=== PATIENT | male | born 1960 | race Caucasian/White ===

== ENCOUNTER 2019-11-19 06:57 | Day surgery (SDC) | payer OTHER ==
[2019-11-19] MEDS ORDERED: Ringers Lactate 1,000 ML IV ONE (07:29)
[2019-11-19] MEDS ORDERED: SUCCINYLCHOLINE 20 MG/ML (10 ML) IV ONE (07:30)
[2019-11-19] MEDS: LIDOCAINE 4% TOP SOLUTION ONE ×2 (07:35→08:04)
[2019-11-19] MEDS ORDERED: LIDOCAINE 1% MPF 30 ML VIAL ONE ×2 (07:47→07:52)
[2019-11-19] MEDS ORDERED: Phenylephrine HCl 10 MG/ML 1 ML VIAL ONE (07:47)
[2019-11-19] MEDS ORDERED: GLYCOPYRROLATE 0.2 MG/ML SYR ONE (07:47)
[2019-11-19] MEDS ORDERED: LIDOCAINE VISCOUS 2% SOLN 15 ML UDC ONE (07:52)
[2019-11-19] MEDS ORDERED: propofoL 200 MG/20 ML VIAL IV ONE ×2 (08:17)
[2019-11-19] MEDS ORDERED: FENTANYL CITR 100 MCG/2 ML ONE (08:18)
[2019-11-19] MEDS ORDERED: LIDOCAINE 1% MPF 5 ML VIAL ONE (08:21)
--- NOTE | 2019-11-19 08:40 | P.OP ---
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 Patient had 90% occlusion of his right upper lobe superior segmental bronchus extending into the anterior segment the triple biopsies were performed as above patient manisha rated the procedure very well specimens were sent off for analysis most likely squamous cell cancer
[2019-11-19] MEDS ORDERED: ALBUTEROL 2.5 MG/3 ML NEB SOL ONE (08:59)
[2019-11-19 09:27] VITALS: TEMP 97.6
[2019-11-19 09:29] VITALS: O2SAT 100
[2019-11-19 09:54] VITALS: BP 108/66
--- NOTE | 2019-11-19 10:00 | RAD REPORT ---
EXAM DESCRIPTION: RAD - Chest Single View - 11/19/2019 9:48 am CLINICAL HISTORY: S/P BRONCHOSCOPY;R/O PNEUMOTHORAX Chest pain. COMPARISON: Chest Pa And Lat (2 Views) dated 10/20/2019; Chest Pa And Lat (2 Views) dated 02/07/2018; CHEST SINGLE VIEW dated 07/20/2011 FINDINGS: Portable technique limits examination quality. The lungs are grossly clear. The heart is normal in size. No postprocedure pneumothorax. IMPRESSION: No postprocedure pneumothorax.
== END 2019-11-19 10:20 | disposition home or self-care (01) ==
LOC: OR 06:57
PROVIDERS: ATTEND Internal Medicine Sleep Medicine
DX: C34.11 Malignant neoplasm of upper lobe, right bronchus or lung (principal); J98.11 Atelectasis; J44.9 Chronic obstructive pulmonary disease, unspecified; A31.9 Mycobacterial infection, unspecified; F51.01 Primary insomnia; F17.200 Nicotine dependence, unspecified, uncomplicated; Z79.51 Long term (current) use of inhaled steroids; Z79.52 Long term (current) use of systemic steroids; Z79.891 Long term (current) use of opiate analgesic; Z79.899 Other long term (current) drug therapy
CPT/HCPCS: 31625; 31624; 31623; 87070; 88108 ×2; 88305 ×2; 87015; 87206; 87116; 87102; 71045; J2704 ×2; J2370; J3010; J7120; J0330

== ENCOUNTER 2020-07-21 08:42 | Emergency (ER) | payer OTHER ==
[2020-07-21 09:16] LABS: Basophils % 1.4 % (0-1.3); Hematocrit 41.9 % (39.6-49.0); Lymphocytes % 17.9 % (15.3-44.8); MPV 7.2 fL (7.6-11.3); RBC Red Blood Cell Count 4.24 M/uL (4.33-5.43)
[2020-07-21 09:19] LABS: Protime INR 0.96
[2020-07-21 09:39] LABS: ALT/SGPT 24 U/L (12-78); AST/SGOT 20 U/L (15-37); Albumin 3.7 g/dL (3.4-5.0); Alkaline Phosphatase 76 U/L (45-117); BUN Blood Urea Nitrogen 14 mg/dL (7-18); Bicarbonate 30 mmol/L (21-32); Bilirubin Direct < 0.1 mg/dL (0-0.2); Bilirubin Total 0.3 mg/dL (0.2-1.0); Glucose Level 92 mg/dL (74-106); Magnesium 2.1 mg/dL (1.8-2.4); NT PRO-BNP 100 pg/mL (<125); Potassium 4.1 mmol/L (3.5-5.1); Protein, Total 7.1 g/dL (6.4-8.2); Sodium Level 141 mmol/L (136-145); Troponin (Emerg Dept Use Only) < 0.02 ng/mL (0.0-0.045)
--- NOTE | 2020-07-21 10:03 | RAD REPORT ---
EXAM DESCRIPTION: RAD - Chest Single View - 07/21/2020 9:31 am CLINICAL HISTORY: CHEST PAIN, lung cancer history COMPARISON: CT chest June 28, portable chest October 2019 . TECHNIQUE: AP portable chest image was obtained 07/21/2020 9:31 am . FINDINGS: No new mass or infiltrate of the lung parenchyma. Right perihilar stranding and slight jennifer vation of the right hilum noted similar to the CT study. Trachea is in the midline. No failure or vol ume overload. IMPRESSION: No acute cardiopulmonary process. No significant change from the June 28 CT study.
[2020-07-21] MEDS ORDERED: METHYLPREDNISOLONE 125 MG INJ ONE (10:33)
[2020-07-21] MEDS ORDERED: KETOROLAC 30 MG/ML INJ ONE (10:33)
--- NOTE | 2020-07-21 11:32 | EDPHYS ---
Physician Documentation [facility] Name: Suraj Bowens Age: 59 yrs Sex: Male : 1960 Arrival Date: 07/21/2020 Time: 08:42 Bed 5 Private MD: Erick Elmore R ED Physician Humberto Rivera HPI: 07/22 11:05 This 59 yrs old Male presents to ER via Ambulatory with complaints of Chest kdr Pain. 11:05 The patient or guardian reports chest pain that is located primarily in the anterior kdr chest wall, right. Onset: suddenly, 2 day(s) ago. The pain does not radiate. Associated signs and symptoms: Pertinent positives: shortness of breath, Pertinent negatives: diaphoresis, lightheadedness, nausea, vomiting. The chest pain is described as sharp, stabbing. Duration: The patient or guardian reports multiple episodes, that are intermittent, that wax and wane, Related to movement and coughing. Modifying factors: The symptoms are alleviated by remaining still, the symptoms are aggravated by activity, breathing, cough, deep breath, movement, twisting torso. Severity of pain: At its worst the pain was severe incapacitating in the emergency department the pain has improved mildly. The patient has not experienced similar symptoms in the past. The patient has not recently seen a physician. Historical: - Allergies: 07/21 08:57 Keflex; aa5 - PMHx: 08:57 Lung CA; aa5 - PSHx: 08:57 Back Sx; aa5 - Immunization history:: Adult Immunizations unknown. - Social history:: Smoking status: Patient/guardian denies using tobacco. ROS: 07/22 11:05 Constitutional: Negative for fever, chills, and weight loss, Eyes: Negative for injury, kdr pain, redness, and discharge, ENT: Negative for injury, pain, and discharge, Neck: Negative for injury, pain, and swelling, Respiratory: Negative for shortness of breath, cough, wheezing, and pleuritic chest pain, Abdomen/GI: Negative for abdominal pain, nausea, vomiting, diarrhea, and constipation, Back: Negative for injury and pain, : Negative for injury, bleeding, discharge, and swelling, MS/Extremity: Negative for injury and deformity, Skin: Negative for injury, rash, and discoloration, Neuro: Negative for headache, weakness, numbness, tingling, and seizure activity. Psych: Negative for depression, anxiety, suicide ideation, homicidal ideation, and hallucinations, Allergy/Immunology: Negative for hives, rash, and allergies, Endocrine: Negative for neck swelling, polydipsia, polyuria, polyphagia, and marked weight changes, Hematologic/Lymphatic: Negative for swollen nodes, abnormal bleeding, and unusual bruising. Cardiovascular: Positive for chest pain, with cough, with movement, of the anterior aspect of right upper chest, right lateral anterior chest, right lateral posterior chest and right breast. Exam: 07/21 11:44 ECG was reviewed by the Attending Physician. kdr 07/22 11:05 Constitutional: This is a well developed, well nourished patient who is awake, alert, kdr and in mild distress. Head/Face: Normocephalic, atraumatic. Eyes: Pupils equal round and reactive to light, extra-ocular motions intact. Lids and lashes normal. Conjunctiva and sclera are non-icteric and not injected. Cornea within normal limits. Periorbital areas with no swelling, redness, or edema. Neck: Trachea midline, no thyromegaly or masses palpated, and no cervical lymphadenopathy. Supple, full range of motion without nuchal rigidity, or vertebral point tenderness. No Meningismus. Chest/axilla: Normal chest wall appearance and motion. Nontender with no deformity. No lesions are appreciated. Cardiovascular: Regular rate and rhythm with a normal S1 and S2. No gallops, murmurs, or rubs. Normal PMI, no JVD. No pulse deficits. Respiratory: Lungs have equal breath sounds bilaterally, clear to auscultation and percussion. No rales, rhonchi or wheezes noted. No increased work of breathing, no retractions or nasal flaring. Abdomen/GI: Soft, non-tender, with normal bowel sounds. No distension or tympany. No guarding or rebound. No evidence of tenderness throughout. Back: No spinal tenderness. No costovertebral tenderness. Full range of motion. Skin: Warm, dry with normal turgor. Normal color with no rashes, no lesions, and no evidence of cellulitis. MS/ Extremity: Pulses equal, no cyanosis. Neurovascular intact. Full, normal range of motion. Neuro: Awake and alert, GCS 15, oriented to person, place, time, and situation. Cranial nerves II-XII grossly intact. Motor strength 5/5 in all extremities. Sensory grossly intact. Cerebellar exam normal. Normal gait. Psych: Awake, alert, with orientation to person, place and time. Behavior, mood, and affect are within normal limits. Vital Signs: 07/21 08:45 Weight 83.91 kg (R); Height 5 ft. 11 in. (180.34 cm) (R); Pain 9/10; aa5 08:45 BP 135 / 79; Pulse 57; Resp 22; Temp 98.6; Pulse Ox 97% ; Pain 10/10; jl7 09:45 BP 116 / 65; Pulse 46 MON; Resp 20; Pulse Ox 100% ; sv 10:30 BP 106 / 68; Pulse 44; Resp 14; Pulse Ox 96% ; sv 11:00 BP 100 / 63; Pulse 45; Resp 17; Pulse Ox 96% ; Pain 1/10; jl7 08:45 Body Mass Index 25.80 (83.91 kg, 180.34 cm) aa5 09:45 Sinus bradycardia sv MDM: 11:32 Patient medically screened. [facility] 07/22 11:05 Data reviewed: vital signs, nurses notes, lab test result(s), EKG, radiologic studies. kdr Counseling: I had a detailed discussion with the patient and/or guardian regarding: the historical points, exam findings, and any diagnostic results supporting the discharge/admit diagnosis, lab results, radiology results, the need for outpatient follow up. Medical screen evaluation completed. EMTALA emergency medical condition absent. ED course: The patient significantly improved with the interventions given. 07/21 08:56 Order name: Basic Metabolic Panel; Complete Time: 11: [facility] 07/21 08:56 Order name: CBC with Diff; Complete Time: 11: [facility] 07/21 08:56 Order name: LFT's; Complete Time: 11: [facility] 07/21 08:56 Order name: Magnesium; Complete Time: 11: [facility] 07/21 08:56 Order name: NT PRO-BNP; Complete Time: 11: [facility] 07/21 08:56 Order name: PT-INR; Complete Time: 11: [facility] 07/21 08:56 Order name: Troponin (emerg Dept Use Only); Complete Time: 11: [facility] 07/21 08:56 Order name: XRAY Chest (1 view); Complete Time: 11:29 [facility] 07/21 08:56 Order name: EKG; Complete Time: 08: [facility] 07/21 08:56 Order name: Cardiac monitoring; Complete Time: 08:56 [facility] 07/21 08:56 Order name: EKG - Nurse/Tech; Complete Time: 08:56 [facility] 07/21 08:56 Order name: IV Saline Lock; Complete Time: 09: [facility] 07/21 08:56 Order name: Labs collected and sent; Complete Time: 09: [facility] 07/21 08:56 Order name: O2 Per Protocol; Complete Time: 08: [facility] 07/21 08:56 Order name: O2 Sat Monitoring; Complete Time: 08: [facility] EC/25 11:44 Rate is 54 beats/min. Rhythm is regular, Sinus bradycardia with No ectopy. QRS [place] is kdr Normal. [place] interval is normal. QRS interval is normal. QT interval is normal. Clinical impression: NSR w/ Non-specific ST/T Changes. Administered Medications: 10:17 Drug: TORadol - Ketorolac 15 mg Route: IVP; Site: left antecubital; jl7 10:45 Follow up: Response: No adverse reaction; Pain is decreased jl7 10:17 Drug: SOLU-Medrol 125 mg Route: IVP; Site: left antecubital; jl7 11:46 Follow up: Response: No adverse reaction jl7 11:46 Drug: [place] 10 mg-325 mg 1 tabs Route: PO; jl7 11:46 Follow up: Response: Medication administered at discharge. jl7 Disposition: 07/21/20 11:32 Discharged to Home. Impression: Pleurisy. - Condition is Stable. - Discharge Instructions: Bradycardia, Adult, Pleurisy, [id number]. - Prescriptions for Ibuprofen 800 mg Oral Tablet - take 1 tablet by ORAL route every 8 hours As needed take with food; 30 tablet. Tramadol 50 mg Oral Tablet - take 1 tablet by ORAL route every 8 hours as needed; 12 tablet. Medrol (Homero) 4 mg Oral Tablets, Dose Pack - take 1 tablet by ORAL route as directed - follow package instructions; 1 packet. - Medication Reconciliation Form, Thank You Letter, Prescription Opioid Use form. - Follow up: Erick Elmore MD; When: 2 - 3 days; Reason: If symptoms return, Further diagnostic work-up, Recheck today's complaints, Continuance of care, Re-evaluation by your physician. - Problem is new. - Symptoms have improved. - Notes: Hold your Atenolol for 24 hours and call your oyster bed worker for a possible adjustment to your medications Signatures: Dispatcher [employer] EDMS Humberto Rivera MD MD kdr Dulce Maria Parker RN RN aa5 Allison Bran RN RN jl7 Corrections: (The following items were deleted from the chart) 11:49 11:32 07/21/2020 11:32 Discharged to Home. Impression: Pleurisy. Condition is Stable. jl7 Forms are Medication Reconciliation Form, Thank You Letter, Antibiotic Education, Prescription Opioid Use. Follow up: Erick Elmore; When: 2 - 3 days; Reason: If symptoms return, Further diagnostic work-up, Recheck today's complaints, Continuance of care, Re-evaluation by your physician. Problem is new. Symptoms have improved. kdr
--- NOTE | 2020-07-21 11:32 | ER ---
Nurse's Notes [facility] Name: Suraj Bowens Age: 59 yrs Sex: Male : 1960 Arrival Date: 07/21/2020 Time: 08:42 Bed 5 Private MD: Erick Elmore R Diagnosis: Pleurisy Presentation: 07/21 08:45 Chief complaint: Patient states: chest pain that began 2 days ago and got worse today. aa5 Pt reports being sent here by from the cancer center. Pt also reports increased SOB. 08:45 Onset of symptoms was June 2020. aa5 08:45 Acuity: SERGIO 3 aa5 08:45 Method Of Arrival: Ambulatory aa5 08:45 Coronavirus screen: Client denies travel out of the [place] in the last 14 days. At this jl7 time, the client does not indicate any symptoms associated with coronavirus-19. Ebola Screen: No symptoms or risks identified at this time. Initial Sepsis Screen: Does the patient meet any 2 criteria? No. Patient's initial sepsis screen is negative. Does the patient have a suspected source of infection? No. Patient's initial sepsis screen is negative. Risk Assessment: Do you want to hurt yourself or someone else? Patient reports no desire to harm self or others. Care prior to arrival: None. Triage Assessment: 08:45 General: Appears in no apparent distress. uncomfortable, Behavior is calm, cooperative, jl7 appropriate for age. Pain: Complains of pain in right rib cage/chest wall Pain does not radiate. Pain currently is 10 out of 10 on a pain scale. Quality of pain is described as sharp, stabbing, Pain began 2-3 days ago. Is continuous. Neuro: Level of Consciousness is awake, alert, obeys commands, Oriented to person, place, time, situation. Cardiovascular: Patient's skin is warm and dry. Rhythm is sinus bradycardia. Respiratory: Airway is patent Respiratory effort is even, labored, Respiratory pattern is symmetrical, tachypnea. Derm: Skin is pink, warm \T\ dry. Historical: - Allergies: 08:57 Keflex; aa5 - PMHx: 08:57 Lung CA; aa5 - PSHx: 08:57 Back Sx; aa5 - Immunization history:: Adult Immunizations unknown. - Social history:: Smoking status: Patient/guardian denies using tobacco. Screenin:23 Abuse screen: Denies threats or abuse. Denies injuries from another. Nutritional jl7 screening: No deficits noted. Tuberculosis screening: No symptoms or risk factors identified. Fall Risk IV access (20 points). Total [place] Fall Scale indicates No Risk (0-24 pts). Assessment: 09:00 General: see triage assessment. jl7 10:00 Reassessment: Patient appears in no apparent distress at this time. Patient and/or jl7 family updated on plan of care and expected duration. Pain level reassessed. Patient is alert, oriented x 3, equal unlabored respirations, skin warm/dry/pink. Patient states feeling better. Patient states symptoms have improved. Vital Signs: 08:45 Weight 83.91 kg (R); Height 5 ft. 11 in. (180.34 cm) (R); Pain 9/10; aa5 08:45 BP 135 / 79; Pulse 57; Resp 22; Temp 98.6; Pulse Ox 97% ; Pain 10/10; jl7 09:45 BP 116 / 65; Pulse 46 MON; Resp 20; Pulse Ox 100% ; sv 10:30 BP 106 / 68; Pulse 44; Resp 14; Pulse Ox 96% ; sv 11:00 BP 100 / 63; Pulse 45; Resp 17; Pulse Ox 96% ; Pain 1/10; jl7 08:45 Body Mass Index 25.80 (83.91 kg, 180.34 cm) aa5 09:45 Sinus bradycardia sv ED Course: 08:42 Patient arrived in ED. am2 08:43 Erick Elmore MD is Private Physician. am2 08:45 Arm band placed on Patient placed in an exam room, on a stretcher. aa5 08:45 Patient has correct armband on for positive identification. Placed in gown. Bed in low jl7 position. Call light in reach. Side rails up X 1. toxicologist on. Pulse ox on. NIBP on. 08:55 Humberto Rivera MD is Attending Physician. kdr 08:55 Initial lab(s) drawn, by me, sent to lab. EKG done, by ED staff, reviewed by Humberto Rivera MD. Inserted saline lock: 20 gauge in left antecubital area, using aseptic technique. Blood collected. Patient maintains SpO2 saturation greater than 95% on room air. 08:56 Allison Bran, RN is Primary Nurse. jl7 08:57 Triage completed. aa5 09:31 XRAY Chest (1 view) In Process Unspecified. EDMS 11:30 Erick Elmore MD is Referral Physician. kdr 11:48 No provider procedures requiring assistance completed. IV discontinued, intact, jl7 bleeding controlled, No redness/swelling at site. Pressure dressing applied. Administered Medications: 10:17 Drug: TORadol - Ketorolac 15 mg Route: IVP; Site: left antecubital; jl7 10:45 Follow up: Response: No adverse reaction; Pain is decreased jl7 10:17 Drug: SOLU-Medrol 125 mg Route: IVP; Site: left antecubital; jl7 11:46 Follow up: Response: No adverse reaction jl7 11:46 Drug: [place] 10 mg-325 mg 1 tabs Route: PO; jl7 11:46 Follow up: Response: Medication administered at discharge. jl7 Outcome: 11:32 Discharge ordered by MD. kdr 11:48 Discharged to home ambulatory, with family. jl7 11:48 Condition: stable 11:48 Discharge instructions given to patient, Instructed on discharge instructions, follow up and referral plans. medication usage, Demonstrated understanding of instructions, follow-up care, medications, Prescriptions given X 3. 11:49 Patient left the ED. jl7 Signatures: Dispatcher [employer] EDUT Karolina Casillas RN RN sv Rittger, Kevin, MD MD kdr Calderon, Audri RN JOANNE aa5 Allison Bran RN RN jl7 Anaid Mayberry am2
[2020-07-21] MEDS ORDERED: HYDROCODONE/APAP 10/325 TAB ONE (11:56)
[2020-07-21 12:15] VITALS: TEMP 98.6
[2020-07-21 12:17] VITALS: O2SAT 96
[2020-07-21 12:18] VITALS: BP 100/63
--- NOTE | 2020-07-22 14:13 | EKG ---
Test Date: 2020-07-21 Test Time: 08:52:05 Pig Iron Loader: JAIR MEASUREMENT RESULTS: Intervals: Rate: 54 FL: 140 QRSD: 78 QT: 402 QTc: 381 [place]: P: 51 FL: 140 QRS: 14 T: 73 INTERPRETIVE STATEMENTS: Sinus bradycardia Otherwise normal ECG Compared to ECG 02/16/2014 15:34:28 No significant changes Electronically Signed On 07-22-20 14:09:23 COMMUNICATIONS SYSTEMS ENGINEER by Satish Tucker
== END 2020-07-21 11:49 | disposition home or self-care (01) ==
LOC: ER 08:42
DX: R09.1 Pleurisy (principal); Z88.1 Allergy status to other antibiotic agents; Z85.118 Personal history of other malignant neoplasm of bronchus and lung
CPT/HCPCS: 93005; 85025; 80048; 36415; 83735; 85610; 80076; 84484; 83880; 71045; 96375; 96374; 99285; J2930

== ENCOUNTER 2020-11-27 09:08 | Observation (INO) | payer OTHER ==
--- NOTE | 2020-11-27 09:46 | RAD REPORT ---
EXAM DESCRIPTION: RAD - Chest Single View - 11/27/2020 9:38 am CLINICAL HISTORY: Cough;Dyspnea COMPARISON: Portable July 21 TECHNIQUE: AP portable chest image was obtained 11/27/2020 9:38 am . FINDINGS: Right lung field is clear and similar to prior imaging. Stranding is seen at the left base partially obscuring the left hemidiaphragm. There is left costophrenic angle blunting. Heart and vasculature are normal. No pneumothorax. No acute bony abnormality seen. No acute aortic f indings suspected. IMPRESSION: Atelectasis versus infiltrate left base.
[2020-11-27 09:55] LABS: Protime INR 1.13
[2020-11-27 09:56] LABS: Absolute Lymphocytes (CBC) 0.4 K/uL (0.7-4.9); Basophils % 0.3 % (0-1.3); Hematocrit 37.9 % (39.6-49.0); Lymphocytes % 5.5 % (15.3-44.8); MPV 7.5 fL (7.6-11.3); RBC Red Blood Cell Count 4.08 M/uL (4.33-5.43)
[2020-11-27 10:15] LABS: ALT/SGPT 14 U/L (12-78); AST/SGOT 10 U/L (15-37); Albumin 3.2 g/dL (3.4-5.0); Alkaline Phosphatase 68 U/L (45-117); BUN Blood Urea Nitrogen 16 mg/dL (7-18); Bicarbonate 27 mmol/L (21-32); Bilirubin Direct 0.2 mg/dL (0-0.2); Bilirubin Total 0.5 mg/dL (0.2-1.0); Glucose Level 110 mg/dL (74-106); NT PRO-BNP 320 pg/mL (<125); Potassium 3.7 mmol/L (3.5-5.1); Protein, Total 6.7 g/dL (6.4-8.2); Sodium Level 137 mmol/L (136-145); Troponin (Emerg Dept Use Only) < 0.02 ng/mL (0.0-0.045)
--- NOTE | 2020-11-27 10:24 | RAD REPORT ---
EXAM DESCRIPTION: CT - Chest For Pe Angio - 11/27/2020 10:05 am CLINICAL HISTORY: Congestion;COPD;Dyspnea COMPARISON: Thorax W/ Con dated 10/05/2020 TECHNIQUE: Dynamically enhanced 3 mm thick images of the chest were obtained during administration o f approximately 150mL Isovue 370 IV contrast. Coronal and oblique MIP reconstruction images were gene rated and reviewed. Exam utilizes a protocol to evaluate the pulmonary arterial tree. All CT scans are performed using dose optimization technique as appropriate and may include automated exposure control or mA/KV adjustment according to patient size. FINDINGS: No pulmonary emboli are identified. The aorta as imaged shows no acute or suspicious finding. No pericardial thickening or effusion. Right perihilar residual soft tissue is present from previously diagnosed and treated lung cancer. Th is soft tissue quantity has not change from October 05. Bilateral posterior lung base consolidation present with air bronchograms. This is more pronounced on the right. No cavitation or mass. No endobronchial lesions seen. Trace amount of bilateral pleural f luid. No pleural based mass or pleural thickening. No mediastinal or hilar suspicious masses. No chest wall masses or abnormal axillary lymphadenopathy. IMPRESSION: Moderate-sized bilateral posterior lung base consolidated pneumonias. No pulmonary emboli.
[2020-11-27] MEDS ORDERED: NA CHLORIDE 0.9% 1,000 ML ONE ×2 (10:26→11:35)
[2020-11-27] MEDS ORDERED: Levofloxacin500mg IV 500 MG/100 ML BAG IV ONE (10:26)
[2020-11-27] MEDS ORDERED: FAMOTIDINE 20 MG/2 ML VIAL IV ONE (10:26)
[2020-11-27] MEDS ORDERED: METHYLPREDNISOLONE 125 MG INJ ONE (10:26)
[2020-11-27] MEDS ORDERED: IPRATROPIUM BROM 0.5MG/2.5ML ONE (10:26)
[2020-11-27] MEDS ORDERED: LEVALBUTEROL 1.25 MG/3 ML NEB ONE (10:26)
[2020-11-27] MEDS ORDERED: ACETAMINOPHEN 500 MG TAB ONE (10:26)
--- NOTE | 2020-11-27 10:28 | EDPHYS ---
Physician Documentation [facility] Name: Suraj Bowens Age: 60 yrs Sex: Male : 1960 Arrival Date: 11/27/2020 Time: 09:12 Bed 6 Private MD: ED Physician Kwame Robbins HPI: 11/27 10:07 This 60 yrs old Male presents to ER via Ambulatory with complaints of Fever, francesca Breathing Difficulty. 10:07 The patient reports fever, not measured (subjective), that was measured at 103 degrees francesca Fahrenheit. Onset: The symptoms/episode began/occurred 3 day(s) ago. Modifying factors: there are no obvious modifying factors. Associated signs and symptoms: Pertinent positives: chills, cough, nausea, night sweats, runny nose, sinus congestion, shortness of breath. Severity of symptoms: At their worst the symptoms were moderate in the emergency department the symptoms are unchanged. The patient has experienced similar episodes in the past, a few times. Historical: - Allergies: 09:22 Cephalexin Monohydrate; ll1 09:22 Doxycycline; ll1 - PMHx: 09:22 Lung CA; "hole in heart never closed up at "; ll1 - PSHx: 09:22 Back SX x 4 with hardware placement; ll1 - Immunization history:: Client reports receiving the 2nd dose of the Covid vaccine, Flu vaccine is up to date. - Social history:: Smoking status: Patient/guardian denies using tobacco, the patient reports quitting approximately 1 years ago. ROS: 10:08 Eyes: Negative for injury, pain, redness, and discharge, ENT: Negative for injury, francesca pain, and discharge, Neck: Negative for injury, pain, and swelling, Abdomen/GI: Negative for abdominal pain, nausea, vomiting, diarrhea, and constipation, Back: Negative for injury and pain, : Negative for injury, bleeding, discharge, and swelling, MS/Extremity: Negative for injury and deformity, Skin: Negative for injury, rash, and discoloration, Neuro: Negative for headache, weakness, numbness, tingling, and seizure, Psych: Negative for depression, anxiety, suicide ideation, homicidal ideation, and hallucinations, Allergy/Immunology: Negative for hives, rash, and allergies, Endocrine: Negative for neck swelling, polydipsia, polyuria, polyphagia, and marked weight changes, Hematologic/Lymphatic: Negative for swollen nodes, abnormal bleeding, and unusual bruising. 10:08 Constitutional: Positive for body aches, chills, fatigue, fever, malaise. 10:08 Cardiovascular: Positive for palpitations. 10:08 Respiratory: Positive for cough, "sounds productive", shortness of breath, wheezing, expiratory. 10:08 MS/extremity: Negative for swelling, tenderness. Exam: 10:08 Head/Face: Normocephalic, atraumatic. Eyes: Pupils equal round and reactive to light, francesca extra-ocular motions intact. Lids and lashes normal. Conjunctiva and sclera are non-icteric and not injected. Cornea within normal limits. Periorbital areas with no swelling, redness, or edema. ENT: Nares patent. No nasal discharge, no septal abnormalities noted. Tympanic membranes are normal and external auditory canals are clear. Oropharynx with no redness, swelling, or masses, exudates, or evidence of obstruction, uvula midline. Mucous membranes moist. Neck: Trachea midline, no thyromegaly or masses palpated, and no cervical lymphadenopathy. Supple, full range of motion without nuchal rigidity, or vertebral point tenderness. No Meningismus. Chest/axilla: Normal chest wall appearance and motion. Nontender with no deformity. No lesions are appreciated. Abdomen/GI: Soft, non-tender, with normal bowel sounds. No distension or tympany. No guarding or rebound. No evidence of tenderness throughout. Back: No spinal tenderness. No costovertebral tenderness. Full range of motion. Male : Normal genitalia with no discharge or lesions. Skin: Warm, dry with normal turgor. Normal color with no rashes, no lesions, and no evidence of cellulitis. MS/ Extremity: Pulses equal, no cyanosis. Neurovascular intact. Full, normal range of motion. Neuro: Awake and alert, GCS 15, oriented to person, place, time, and situation. Cranial nerves II-XII grossly intact. Motor strength 5/5 in all extremities. Sensory grossly intact. Cerebellar exam normal. Normal gait. Psych: Awake, alert, with orientation to person, place and time. Behavior, mood, and affect are within normal limits. 10:08 Constitutional: The patient appears febrile. 10:08 Cardiovascular: Rate: tachycardic, Rhythm: regular, Pulses: Pulses are 4+ in bilateral radial, brachial, femoral, popliteal, posterior tibial and and dorsalis pedis arteries.. Heart sounds: normal, Edema: is not appreciated, JVD: is not appreciated. 10:08 ECG was reviewed by the Attending Physician. Vital Signs: 09:23 Weight 86.18 kg; Height 5 ft. 11 in. (180.34 cm); Pain 0/10; ll1 10:14 BP 98 / 59; Pulse 75; Resp 18; Temp 99.3; Pulse Ox 96% on R/A; ll1 11:17 BP 104 / 62; Resp 13; Pulse Ox 98% on R/A; tr6 15:00 BP 101 / 59; Pulse 86; Pulse Ox 100% on R/A; tr6 09:23 Body Mass Index 26.50 (86.18 kg, 180.34 cm) ll1 MDM: 09:14 Patient medically screened. [facility] 10:22 Antibiotic administration: Levaquin given. Differential diagnosis: Anemia Anxiety franecsca Reaction asthma, CHF exacerbation, Chronic Obstructive Pulmonary Disease viral Infection, bacterial infection, URI, bronchitis, pneumonia UTI, pneumonia, pulmonary edema, Pulmonary Embolism reactive airway disease, Sepsis Unstable Angina. The patient's Wells Deep Vein Thrombosis Score was calculated as follows: Malignancy Total Score: 0-2 Pts- Low Risk. The patient's pulmonary embolism risk score was calculated as follows: malignancy Total Score: 0-2 points. This patient was found to be at low risk for a pulmonary embolism by using the Well's assessment criteria. Immunization status: Influenza vaccine: Data reviewed: vital signs, nurses notes, lab test result(s), EKG, radiologic studies, CT scan, plain films. Data interpreted: conveyor monitor: rate is 75 beats/min, rhythm is regular, Pulse oximetry: on room air is 96 %. Test interpretation: by ED physician or midlevel provider: ECG, plain radiologic studies. Counseling: I had a detailed discussion with the patient and/or guardian regarding: the historical points, exam findings, and any diagnostic results supporting the discharge/admit diagnosis, lab results, radiology results, the need for further work-up and treatment in the hospital. 11/27 09:16 Order name: Basic Metabolic Panel [facility] 11/27 09:16 Order name: CBC with Diff [facility] 11/27 09:16 Order name: LFT's; Complete Time: 10:20 [facility] 11/27 09:16 Order name: Magnesium; Complete Time: 10:20 [facility] 11/27 09:16 Order name: NT PRO-BNP; Complete Time: 10:20 [facility] 11/27 09:16 Order name: PT-INR; Complete Time: 13:08 [facility] 11/27 09:16 Order name: Troponin (emerg Dept Use Only); Complete Time: 10:20 [facility] 11/27 09:16 Order name: Blood Culture Adult (2) 11/27 09:16 Order name: Flu; Complete Time: 13:08 [facility] 11/27 09:16 Order name: Procalcitonin; Complete Time: 13:08 [facility] 11/27 09:16 Order name: Lactate; Complete Time: 10:20 [facility] 11/27 09:16 Order name: Basic Metabolic Panel; Complete Time: 10:20 [facility] 11/27 09:16 Order name: CBC with Automated Diff; Complete Time: 13:08 [facility] 11/27 09:16 Order name: XRAY Chest (1 view); Complete Time: 10:04 [facility] 11/27 09:38 Order name: CT Chest For PE Angio; Complete Time: 13:08 [facility] 11/27 11:01 Order name: SARS-COV-2 RT PCR; Complete Time: 13:08 [facility] 11/27 12:31 Order name: CBC Smear Scan; Complete Time: 13:08 [facility] 11/27 09:16 Order name: EKG; Complete Time: 09:17 [facility] 11/27 09:16 Order name: Cardiac monitoring; Complete Time: 10:02 [facility] 11/27 09:16 Order name: EKG - Nurse/Tech; Complete Time: 10:02 [facility] 11/27 09:16 Order name: IV Saline Lock; Complete Time: 10:02 [facility] 11/27 09:16 Order name: Labs collected and sent; Complete Time: 09:18 [facility] 11/27 09:16 Order name: O2 Per Protocol; Complete Time: 09:18 [facility] 11/27 09:16 Order name: O2 Sat Monitoring; Complete Time: 09:18 [facility] EC:08 Rate is 71 beats/min. Rhythm is regular. QRS [place] is Normal. AR interval is normal. QRS francesca interval is normal. QT interval is normal. No Q waves. T waves are Normal. No ST changes noted. Clinical impression: NSR w/ Non-specific ST/T Changes and No evidence of ischemia. Interpreted by me. Reviewed by me. Administered Medications: 10: Drug: NS 0.9% 500 ml Route: IV; Rate: bolus; Site: right antecubital; tr6 10:22 Drug: levofloxacin 500 mg Volume: 100 ml; Route: IVPB; Infused Over: 60 mins; Site: tr6 right antecubital; 10:22 Drug: Tylenol 1000 mg Route: PO; tr6 10:22 Drug: Pepcid (famotidine) 20 mg Route: IVP; Site: right antecubital; tr6 10:23 Drug: NS 0.9% 1000 ml Route: IV; Rate: 125 ml/hr; Site: right antecubital; tr6 10:23 Drug: SOLU-Medrol (methylPrednisoLONE) 125 mg Route: IVP; Site: right antecubital; tr6 10:23 Drug: Xopenex (levalbuterol) 2.5 mg Route: Inhalation; tr6 10:23 Drug: AtroVENT (ipratropium) Aerosol 0.5 mg Route: Inhalation; tr6 11:16 Drug: NS 0.9% 500 ml Route: IV; Rate: bolus; Site: right antecubital; tr6 12:16 Drug: levofloxacin 250 mg Volume: 50 ml; Route: IVPB; Infused Over: 60 mins; Site: tr6 right antecubital; 12:16 Drug: Mucomyst - Acetylcysteine 600 mg Route: PO; tr6 13:07 Follow up: Response: No adverse reaction tr6 13:23 Drug: vancoMYCIN 1 grams Route: IVPB; Infused Over: 2 hrs; Site: right antecubital; tr6 Disposition Summary: 11/27/20 10:27 Hospitalization Ordered Hospitalization Status: Inpatient Admission francesca Provider: Rick Ramirez cha Condition: Stable francesca Problem: new francesca Symptoms: have improved francesca Bed/Room Type: Standard francesca Location: Telemetry/MedSurg (Inpatient)(11/27/20 16:19) eb Room Assignment: 218(11/27/20 16:19) eb Diagnosis - COPD/ Chronic obstructive pulmonary disease with (acute) exacerbation francesca - Fever, unspecified francesca - Dyspnea francesca - Acute kidney failure, unspecified francesca - Dehydration francesca - Unspecified bacterial pneumonia - bilateral lower lobe consolidations(11/27/20 francesca 10:31) Forms: - Medication Reconciliation Form francesca - SBAR form [facility] Signatures: Dispatcher [employer] EDKwame Zacarias MD MD cha Botello, Elizabeth eb Lewis, Lynsay, RN RN ll1 Sheron Abdul RN RN tr6 Corrections: (The following items were deleted from the chart) 10:05 09:17 CORONAVIRUS+MR.LAB.BRZ ordered. EDOH EDMS 10: 10:27 Unspecified bacterial pneumonia [facility] francesca 12:00 10:27 Telemetry/MedSurg (Inpatient) francesca eb 12:00 10:27 francesca eb 16:19 12:00 [facility] ER HOLD eb eb 16:19 12:00 ERHOLD- eb eb
--- NOTE | 2020-11-27 10:28 | ER ---
Nurse's Notes [facility] Name: Suraj Bowens Age: 60 yrs Sex: Male : 1960 Arrival Date: 11/27/2020 Time: 09:12 Bed 6 Private MD: Diagnosis: COPD/ Chronic obstructive pulmonary disease with (acute) exacerbation;Unspecified bacterial pneumonia-bilateral lower lobe consolidations;Fever, unspecified;Dyspnea;Acute kidney failure, unspecified;Dehydration Presentation: 11/27 09:23 Chief complaint: Patient states: Fever since after getting his ll1 immunosuppression medication. Fever up to 102.9 today, + SOB. States he has his usual "smokers cough", no worse than usual. Coronavirus screen: Client denies travel out of the [place] in the last 14 days. difficulty breathing, fever, shortness of breath, Client presents with at least one sign or symptom that may indicate coronavirus-19. Standard/surgical mask placed on the client. Ebola Screen: Patient denies travel to an Ebola-affected area in the 21 days before illness onset. Initial Sepsis Screen: Does the patient have a suspected source of infection? Yes: Other: SOB and fever. Risk Assessment: Do you want to hurt yourself or someone else? Patient reports no desire to harm self or others. Onset of symptoms was November 24, 2020. 09:23 Method Of Arrival: Ambulatory 1 09:23 Acuity: SERGIO 3 ll1 11:24 Initial Sepsis Screen: Does the patient meet any 2 criteria? No. Patient's initial tr6 sepsis screen is negative. Does the patient have a suspected source of infection? Yes: Productive cough/pneumonia. Triage Assessment: 11:25 Respiratory: Reports shortness of breath cough that is Onset: The symptoms/episode tr6 began/occurred gradually, Historical: - Allergies: 09:22 Cephalexin Monohydrate; ll1 09:22 Doxycycline; ll1 - PMHx: 09:22 Lung CA; "hole in heart never closed up at "; ll1 - PSHx: 09:22 Back SX x 4 with hardware placement; ll1 - Immunization history:: Client reports receiving the 2nd dose of the Covid vaccine, Flu vaccine is up to date. - Social history:: Smoking status: Patient/guardian denies using tobacco, the patient reports quitting approximately 1 years ago. Screenin:25 Abuse screen: Denies threats or abuse. Nutritional screening: No deficits noted. ll1 Tuberculosis screening: No symptoms or risk factors identified. 11:24 Fall Risk None identified. Pneumonia Screening: Productive Cough (5pts), Shortness of tr6 Breath (3pts), Fever (3pts), Fever/Chills/Sweating (5pts), Chronic Respiratory/Lung Disease (3pts), Hx. HIV/SCA/Chemo.(3pts), Hx. of Pneumonia (2pts). Assessment: 10:00 General: Appears in no apparent distress. comfortable, Behavior is calm, cooperative, tr6 appropriate for age. Pain: Current management is with Morphine, pt has chronic back pain. Neuro: No deficits noted. Cardiovascular: Rhythm is regular. Respiratory: Airway is patent Trachea midline Respiratory effort is even, unlabored, Respiratory pattern is regular, Breath sounds are coarse Breath sounds with rhonchi bilaterally. GI: No deficits noted. : No deficits noted. EENT: No deficits noted. Derm: No deficits noted. Musculoskeletal: No deficits noted. 10:25 Respiratory: Airway is patent. tr6 11:16 Reassessment: MD Ramirez at bedside. tr6 14:29 Reassessment: pt and pts in room eating lunch. denies need for assistance at this tr6 time. will continue to monitor. 15:41 Reassessment: pt OOB and walking in hallway independently. o2 sat remains in high 90s tr6 during ambulation, pt denies SOB. pt changed to hospital bed. 16:58 Reassessment: report called to second floor Cathleen RUBIO. tr6 Vital Signs: 09:23 Weight 86.18 kg; Height 5 ft. 11 in. (180.34 cm); Pain 0/10; ll1 10:14 BP 98 / 59; Pulse 75; Resp 18; Temp 99.3; Pulse Ox 96% on R/A; ll1 11:17 BP 104 / 62; Resp 13; Pulse Ox 98% on R/A; tr6 15:00 BP 101 / 59; Pulse 86; Pulse Ox 100% on R/A; tr6 09:23 Body Mass Index 26.50 (86.18 kg, 180.34 cm) ll1 ED Course: 09:12 Patient arrived in ED. mr 09:14 Kwame Robbins MD is Attending Physician. francesca 09:18 Sheron Abdul RN is Primary Nurse. tr6 09:22 Arm band placed on Patient placed in an exam room, on a stretcher. ll1 09:25 Triage completed. ll1 09:26 Patient has correct armband on for positive identification. Bed in low position. Call ll1 light in reach. 09:38 XRAY Chest (1 view) In Process Unspecified. EDMS 09:55 EKG done, by ED staff, reviewed by Kwame Robbins MD. dh3 09:55 Inserted saline lock: 18 gauge in right antecubital area, using aseptic technique. tr6 Blood collected. 10:05 CT Chest For PE Angio In Process Unspecified. EDMS 10:24 Rick Ramirez is Hospitalizing Provider. [facility] 11:23 No provider procedures requiring assistance completed. tr6 11:24 Resting quietly. Awaiting bed assignment. tr6 11:24 property assessment monitor on. Pulse ox on. NIBP on. Door closed. Noise minimized. Visitors tr6 limited. Lights dimmed. Moved to private room. Warm blanket given. Diet: Patient given a regular meal tray. Tolerated well. 11:24 Patient admitted, IV remains in place. tr6 11:24 Patient maintains SpO2 saturation greater than 95% on room air. tr6 Administered Medications: 10:21 Drug: NS 0.9% 500 ml Route: IV; Rate: bolus; Site: right antecubital; tr6 10:22 Drug: levofloxacin 500 mg Volume: 100 ml; Route: IVPB; Infused Over: 60 mins; Site: tr6 right antecubital; 10:22 Drug: Tylenol 1000 mg Route: PO; tr6 10:22 Drug: Pepcid (famotidine) 20 mg Route: IVP; Site: right antecubital; tr6 10:23 Drug: NS 0.9% 1000 ml Route: IV; Rate: 125 ml/hr; Site: right antecubital; tr6 10:23 Drug: SOLU-Medrol (methylPrednisoLONE) 125 mg Route: IVP; Site: right antecubital; tr6 10:23 Drug: Xopenex (levalbuterol) 2.5 mg Route: Inhalation; tr6 10:23 Drug: AtroVENT (ipratropium) Aerosol 0.5 mg Route: Inhalation; tr6 11:16 Drug: NS 0.9% 500 ml Route: IV; Rate: bolus; Site: right antecubital; tr6 12:16 Drug: levofloxacin 250 mg Volume: 50 ml; Route: IVPB; Infused Over: 60 mins; Site: tr6 right antecubital; 12:16 Drug: Mucomyst - Acetylcysteine 600 mg Route: PO; tr6 13:07 Follow up: Response: No adverse reaction tr6 13:23 Drug: vancoMYCIN 1 grams Route: IVPB; Infused Over: 2 hrs; Site: right antecubital; tr6 Outcome: 10:27 Decision to Hospitalize by Provider. francesca 11:24 Admitted to Med/surg tr6 11:24 Condition: stable 11:24 Instructed on the need for admit, Demonstrated understanding of instructions, follow-up care, medications. 17:15 Patient left the ED. ll1 Signatures: Dispatcher [employer] Kwame Pollack MD MD cha Rivera, Mary Caren Navas 3 Carmela Croft RN RN 1 Sheron Abdul RN RN tr6
[2020-11-27] MEDS ORDERED: VANCOMYCIN/NS 1 gm 1 GM/250 ML BAG IV ONE (11:45)
[2020-11-27] MEDS ORDERED: ACETYLCYST 20% 800 MG/4 ML VIAL PO ONE (12:00)
[2020-11-27] MEDS ORDERED: Levofloxacin 250mg IV 250 MG/50 ML BAG IV ONE (12:00)
--- NOTE | 2020-11-27 12:14 | P.HP ---
Certification for Inpatient Patient admitted to: Inpatient With expected LOS: >2 Midnights Practitioner: I am a practitioner with admitting privileges, knowledge of patient current condition, hospital course, and medical plan of care. Services: Services provided to patient in accordance with Admission requirements found in Title 42 Section 412.3 of the Code of Federal Regulations Patient History Date of Service: 11/27/20 Reason for admission: Fever and shortness of breath History of Present Illness: 60-year-old gentleman with a history of COPD, non-small cell lung cancer, status post chemotherapy, now on immunotherapy presented to the emergency department with a complaint of fever and shortness of breath of 4 days duration. He also reports nonproductive cough. He denied any chest pain or pleurisy. CTA thorax done in the emergency department demonstrate bilateral lower lobe posterior pneumonia. No pulmonary embolus. Patient not hypoxic. Does not meet criteria for sepsis. He is admitted for further management. Allergies cephalexin monohydrate [From Keflex] Allergy (Verified 11/16/19 13:56) Itching doxycycline Allergy (Verified 07/20/11 17:31) Nausea/Vomiting Home Medications: Azithromycin [Zithromax] 500 mg PO DAILY #0 tablet 07/20/11 Albuterol Neb [Albuterol Sulfate 0.083% Neb Soln] 2.5 mg IH TIDP PRN 11/16/19 Albuterol Sulfate [Ventolin Hfa] 18 gm IH QIDP PRN 11/16/19 Atenolol [Tenormin] 25 mg PO BEDTIME 11/16/19 Clopidogrel Bisulfate [Plavix] 75 mg PO DAILY 11/16/19 Ethambutol HCl [Myambutol] 1,200 mg PO DAILY 11/16/19 Fluticasone/Salmeterol [Advair 250-50 Diskus] 1 each IH BID 11/16/19 Morphine *Extended Release* [MS Contin] 90 mg PO DAILY 11/16/19 Oxycodone HCl/Acetaminophen [Percocet 10-325 mg Tablet] 1 each PO BID 11/16/19 Pravastatin Sodium 20 mg PO DAILY 11/16/19 Tizanidine [Zanaflex] 4 mg PO BID 11/16/19 Umeclidinium [place] [Incruse Ellipta] 62.5 mcg IH DAILY 11/16/19 Zolpidem Tartrate [Ambien] 10 mg PO BEDTIME 11/16/19 predniSONE [Deltasone] 10 mg PO DAILY 11/16/19 - Past Medical/Surgical History -: Small-cell lung cancer -: History of Pulmonary MAC -: COPD -: Hypertension -: Cardiac septal defect - Social History Alcohol use: No CD- Drugs: No Place of Residence: Home Review of Systems Other: Except as documented, all other systems reviewed and negative. Physical Examination - Physical Exam General: Alert, In no apparent distress, Oriented x3 HEENT: Normocephalic, PERRLA, Mucous membr. moist/pink, Sclerae nonicteric Neck: Supple, JVD not distended, No Thyromegaly Respiratory: Clear to auscultation bilaterally, Normal air movement Cardiovascular: No edema, Regular rate/rhythm, Normal S1 S2, No murmurs Capillary refill: <2 Seconds Gastrointestinal: Normal bowel sounds, Soft and benign, Non-distended, No tenderness Musculoskeletal: No swelling, No tenderness Integumentary: No rashes, No erythema Neurological: Normal speech, Normal strength at 5/5 x4 extr, Cranial nerves 3-12 intact Lymphatics: No axilla or inguinal lymphadenopathy - Studies Laboratory Data (last 24 hrs) 11/27/20 09:42: PT 13.0 H, INR 1.13 11/27/20 09:42: WBC 8.10, Hgb 12.9 L, Hct 37.9 L, Plt Count 201 11/27/20 09:42: Sodium 137, Potassium 3.7, BUN 16, Creatinine 1.31 H, Glucose 110 H, Magnesium 2.0, Total Bilirubin 0.5, AST 10 L, ALT 14, Alkaline Phosphatase 68 Microbiology Data (last 24 hrs): 11/27/20 09:16 Nasopharnyx Influenza Type A Antigen Screen - Final 11/27/20 09:16 Nasopharnyx Influenza Type B Antigen Screen - Final Assessment and Plan - Problems (Diagnosis) (1) Pneumonia Current Visit: Yes Status: Acute (2) COPD (chronic obstructive pulmonary disease) Current Visit: Yes Status: Acute (3) History of lung cancer Current Visit: Yes Status: Acute - Plan Admit to the medical floor. Start IV vancomycin and Levaquin. Obtain sputum culture. Follow blood cultures obtained in the ED Consult to pulmonary. Bronchodilators. Monitor CBC and blood chemistry. - Advance Directives Does patient have a Living Will: No Does patient have a Durable POA for Healthcare: No
[2020-11-27 12:31] LABS: Blood Morphology Comment NOT SEEN (NOT SEEN); Platelet Estimate ADEQ; White Blood Cell Scan OK (OK)
[2020-11-27] MEDS ORDERED: ACETYLCYST 6,000 MG/30 ML VIAL ONE (12:33)
[2020-11-27 19:07] VITALS: BMI 26.4
[2020-11-27] MEDS ORDERED: ACETAMINOPHEN 500 MG TAB PO PRN (19:09)
[2020-11-27] MEDS ORDERED: ONDANSETRON 4 MG/2 ML VIAL IV PRN (19:09)
[2020-11-27] MEDS ORDERED: NA CHLORIDE 0.9% 1,000 ML IV SCH (19:09)
[2020-11-27] MEDS ORDERED: ALBUTEROL 2.5 MG/3 ML NEB SOL NEB PRN (19:09)
[2020-11-27] MEDS ORDERED: VANCOMYCIN/NS 1 gm 1 GM/250 ML BAG IVPB ONE (20:15)
[2020-11-27] MEDS ORDERED: VANCOMYCIN 1 GM/VIAL ONE (20:44)
[2020-11-27] MEDS ORDERED: NA CHLORIDE 0.9% 250 ML ONE (20:44)
[2020-11-27] MEDS: GUAIFENESIN 600 MG SA TAB PO SCH (20:53)
[2020-11-27] MEDS ORDERED: VANCOMYCIN 1.25 GM in NA CHLORIDE 0.9% 250 ML IVPB SCH (21:00)
[2020-11-28 06:13] LABS: Absolute Lymphocytes (CBC) 0.3 K/uL (0.7-4.9); Basophils % 0.1 % (0-1.3); Hematocrit 33.3 % (39.6-49.0); Lymphocytes % 3.7 % (15.3-44.8); MPV 7.6 fL (7.6-11.3); RBC Red Blood Cell Count 3.59 M/uL (4.33-5.43)
[2020-11-28 06:22] LABS: Magnesium 2.4 mg/dL (1.8-2.4); Potassium 4.4 mmol/L (3.5-5.1)
--- NOTE | 2020-11-28 08:49 | P.CNS ---
Date of Consult: 11/28/20 Reason for Consult: Possible pneumonia Chief Complaint: Fever and shortness of breath History of Present Illness: Patient is 60 years of age treated for [id number] lung cancer is receiving immunotherapy apparently after the last immune therapy started having some fever worsening shortness of breath and appeared in the emergency room he feels fine now also developed more shortness of breath history of mycobacterium avium non compliant Allergies cephalexin monohydrate [From Keflex] Allergy (Verified 11/16/19 13:56) Itching doxycycline Allergy (Verified 07/20/11 17:31) Nausea/Vomiting Home Medications: Albuterol Neb [Albuterol Sulfate 0.083% Neb Soln] 2.5 mg IH TIDP PRN 11/16/19 Albuterol Sulfate [Ventolin Hfa] 18 gm IH QIDP PRN 11/16/19 Atenolol [Tenormin] 25 mg PO BEDTIME 11/16/19 Clopidogrel Bisulfate [Plavix] 75 mg PO DAILY 11/16/19 Fluticasone/Salmeterol [Advair 250-50 Diskus] 1 each IH BID 11/16/19 Morphine *Extended Release* [MS Contin] 90 mg PO DAILY 11/16/19 Oxycodone HCl/Acetaminophen [Percocet 10-325 mg Tablet] 1 each PO BID 11/16/19 Pravastatin Sodium 20 mg PO DAILY 11/16/19 Tizanidine [Zanaflex] 4 mg PO BID 11/16/19 Umeclidinium [place] [Incruse Ellipta] 62.5 mcg IH DAILY 11/16/19 Zolpidem Tartrate [Ambien] 10 mg PO BEDTIME 11/16/19 predniSONE [Deltasone] 10 mg PO DAILY 11/16/19 - Past Medical/Surgical History -: Small-cell lung cancer -: History of Pulmonary MAC -: COPD -: Hypertension -: Cardiac septal defect - Social History Alcohol use: No CD- Drugs: No Caffeine use: Yes Place of Residence: Home Review of Systems General: Weakness Respiratory: Cough, Shortness of Breath Physical Examination Temp Pulse Resp BP Pulse Ox 97.1 F 47 L 16 104/56 L 95 11/28/20 04:00 11/28/20 04:00 11/28/20 04:00 11/28/20 04:00 11/28/20 04:00 General: Alert, In no apparent distress, Oriented x3 Respiratory: Friction rub, Expiratory wheezes Cardiovascular: Regular rate/rhythm Gastrointestinal: Normal bowel sounds, Soft and benign Musculoskeletal: No clubbing, No swelling Laboratory Data (last 24 hrs) 11/27/20 09:42: PT 13.0 H, INR 1.13 11/27/20 09:42: WBC 8.10, Hgb 12.9 L, Hct 37.9 L, Plt Count 201 11/27/20 09:42: Sodium 137, Potassium 3.7, BUN 16, Creatinine 1.31 H, Glucose 110 H, Magnesium 2.0, Total Bilirubin 0.5, AST 10 L, ALT 14, Alkaline Phosphatase 68 - Problems (1) COPD exacerbation Current Visit: Yes Status: Acute Plan: Patient is 60 years of age with a history of COPD treated for a non-small cell lung cancer receiving immunotherapy admitted with some fever more shortness of breath cough congestion he has been vaccinated against ellington virus labs reviewed no fever labs all unremarkable pro calcitonin level is normal vital signs oxygenation stable he is wheezing plan to discharge home on prednisone 20 b.i.d. for a week and then resume his regular dose Dc all Mac antibiotics CT scan did show bilateral lower lobe infiltrates these appeared to be new discharged home on levofloxacin for 7 days follow with me in 2 weeks wait until the cultures are negative
[2020-11-28] MEDS ORDERED: VANCOMYCIN 1.5 GM in NA CHLORIDE 0.9% 500 ML IVPB SCH ×2 (09:00→15:00)
[2020-11-28] MEDS ORDERED: Levofloxacin 750mg IV 750 MG/150 ML BAG IV SCH (09:00)
[2020-11-28] MEDS ORDERED: POTASS/SODIUM PHOSPHATE 1 PKT POWD.PACK PO ONE (09:00)
[2020-11-28] MEDS ORDERED: ENOXAPARIN 40 MG/0.4 ML SQ SCH (09:00)
[2020-11-28 10:14] VITALS: O2SAT 94
[2020-11-28] MEDS: POTASS/SODIUM PHOSPHATE 1 PKT POWD.PACK PO SCH ×3 (10:28→12:53)
[2020-11-28] MEDS: GUAIFENESIN 600 MG SA TAB PO SCH (10:28)
--- NOTE | 2020-11-28 10:31 | EKG ---
Test Date: 2020-11-27 Test Time: 09:38:15 Copy Holder: KATIE MEASUREMENT RESULTS: Intervals: Rate: 71 MA: 136 QRSD: 78 QT: 360 QTc: 391 [place]: P: 65 MA: 136 QRS: 43 T: 67 INTERPRETIVE STATEMENTS: Normal sinus rhythm Possible Left atrial enlargement Borderline ECG Compared to ECG 07/21/2020 08:52:05 Sinus bradycardia no longer present Electronically Signed On 11-28-20 10:30:10 CDT by Satish Tucker
--- NOTE | 2020-11-28 11:17 | P.DS ---
Admission Date: 11/27/20 Discharge Date: 11/28/20 Discharge Condition: FAIR Reason for Admission: Fever and shortness of breath - Problems (1) Pneumonia Current Visit: Yes Status: Acute (2) COPD (chronic obstructive pulmonary disease) Current Visit: Yes Status: Acute (3) History of lung cancer Current Visit: Yes Status: Acute Brief History of Present Illness: 60-year-old gentleman with a history of COPD, non-small cell lung cancer, status post chemotherapy, now on immunotherapy presented to the emergency department with a complaint of fever and shortness of breath of 4 days duration. He also reports nonproductive cough. He denied any chest pain or pleurisy. CTA thorax done in the emergency department demonstrate bilateral lower lobe posterior pneumonia. No pulmonary embolus. Patient not hypoxic. Does not meet criteria for sepsis. He was admitted for further management. Hospital Course: Patient admitted to the medical floor and treated with broad-spectrum antibiotics. Also placed on bronchodilators and steroid. Patient was not hypoxic on room air. Not septic. Loose clinically stable. He could not provide a sample for exam. He was seen by pulmonary-Dr. Marquez recommend oral steroid Levaquin for the pneumonia. Patient is deemed clinically stable for discharge. He will follow with Dr. Marquez in the office within 1 week. Vital Signs/Physical Exam: Temp Pulse Resp BP Pulse Ox 97.4 F 51 18 114/54 L 98 11/28/20 08:00 11/28/20 08:00 11/28/20 08:00 11/28/20 08:00 11/28/20 08:00 General: Alert, In no apparent distress, Oriented x3 HEENT: Mucous membr. moist/pink Neck: JVD not distended Respiratory: Clear to auscultation bilaterally, Normal air movement Cardiovascular: No edema Gastrointestinal: Normal bowel sounds, Soft and benign, Non-distended, No tenderness Musculoskeletal: No swelling Integumentary: No rashes, No erythema Neurological: Normal strength at 5/5 x4 extr Laboratory Data at Discharge: WBC 9.30 K/uL (4.3-10.9) D 11/28/20 05:12 Hgb 11.7 g/dL (13.6-17.9) L 11/28/20 05:12 Hct 33.3 % (39.6-49.0) L 11/28/20 05:12 Plt Count 162 K/uL (152-406) 11/28/20 05:12 PT 13.0 SECONDS (9.5-12.5) H 11/27/20 09:42 INR 1.13 11/27/20 09:42 Sodium 141 mmol/L (136-145) 11/28/20 05:12 Potassium 4.4 mmol/L (3.5-5.1) 11/28/20 05:12 BUN 11 mg/dL (7-18) 11/28/20 05:12 Creatinine 0.95 mg/dL (0.55-1.3) 11/28/20 05:12 Glucose 120 mg/dL (74-106) H 11/28/20 05:12 Phosphorus 2.0 mg/dL (2.5-4.9) L 11/28/20 05:12 Magnesium 2.4 mg/dL (1.8-2.4) 11/28/20 05:12 Total Bilirubin 0.5 mg/dL (0.2-1.0) 11/27/20 09:42 AST 10 U/L (15-37) L 11/27/20 09:42 ALT 14 U/L (12-78) 11/27/20 09:42 Alkaline Phosphatase 68 U/L (45-117) 11/27/20 09:42 Triglycerides 44 mg/dL (<150) 11/28/20 05:12 Cholesterol 139 mg/dL (<200) 11/28/20 05:12 HDL Cholesterol 57 mg/dL (40-60) 11/28/20 05:12 Cholesterol/HDL Ratio 2.44 11/28/20 05:12 Home Medications: Albuterol Neb [Proventil 0.083% Neb Soln] 2.5 mg IH TIDP PRN 11/16/19 Albuterol Sulfate [Ventolin Hfa] 18 gm IH QIDP PRN 11/16/19 Atenolol [Tenormin] 25 mg PO BEDTIME 11/16/19 Clopidogrel Bisulfate [Plavix*] 75 mg PO DAILY 11/16/19 Fluticasone/Salmeterol [Advair 250-50 Diskus] 1 each IH BID 11/16/19 Morphine *Extended Release* [MS Contin*] 90 mg PO DAILY 11/16/19 Oxycodone HCl/Acetaminophen [Percocet 10-325 mg Tablet] 1 each PO BID 11/16/19 Pravastatin Sodium 20 mg PO DAILY 11/16/19 Tizanidine [Zanaflex*] 4 mg PO BID 11/16/19 Umeclidinium [place] [Incruse Ellipta] 62.5 mcg IH DAILY 11/16/19 Zolpidem Tartrate [Ambien*] 10 mg PO BEDTIME 11/16/19 Guaifenesin [Mucinex] 600 mg PO BID #20 tablet.er 11/28/20 levoFLOXacin [Levaquin] 750 mg PO DAILY #7 tab 11/28/20 predniSONE [Deltasone] 20 mg PO BID #14 tab 11/28/20 New Medications: levoFLOXacin [Levaquin] 750 mg PO DAILY #7 tab Guaifenesin [Mucinex] 600 mg PO BID #20 tablet.er predniSONE [Deltasone] 20 mg PO BID #14 tab Physician Discharge Instructions: Repeat Chest x-ray within 6 weeks to document clearance of the pneumonia. Diet: AHA Activity: Ad skip Followup: Unknown,U [Primary Care Provider] - Fernando Marquez MD [ACTIVE - CAN ADMIT] - 1 Week
[2020-11-28 13:03] VITALS: TEMP 97.9
[2020-11-28 15:44] VITALS: BP 100/60
== END 2020-11-28 14:37 | disposition home or self-care (01) ==
LOC: ER 09:08 → ERHOLD 12:02 → INTOOBSV 12:02 → 2ND 17:03
PROVIDERS: ADMIT Internal Medicine; ATTEND Internal Medicine
DX: J18.9 Pneumonia, unspecified organism (principal); J44.1 Chronic obstructive pulmonary disease with (acute) exacerbation; C34.90 Malignant neoplasm of unspecified part of unspecified bronchus or lung; N17.9 Acute kidney failure, unspecified; E86.0 Dehydration; I10 Essential (primary) hypertension; Q21.9 Congenital malformation of cardiac septum, unspecified; Z87.891 Personal history of nicotine dependence; Z79.899 Other long term (current) drug therapy; Z79.02 Long term (current) use of antithrombotics/antiplatelets; Z88.1 Allergy status to other antibiotic agents; Z88.3 Allergy status to other anti-infective agents; Z20.822 Contact with and (suspected) exposure to COVID-19
CPT/HCPCS: 36415; 71045; 71275; 80048; 80061; 80076; 82565; 83605; 83735; 83880; 84100; 84145; 84484; 85025; 85610; 87040; 87804; 93005; 94760; 96374; 96375; 99285; G0378; J1650; J2930; J3370; J7030; J7040; J7050; Q9967; U0003

== ENCOUNTER 2021-10-18 13:00 | Emergency (ER) | payer OTHER ==
[2021-10-18 13:49] LABS: Absolute Lymphocytes (CBC) 0.3 K/uL (0.7-4.9); Hematocrit 41.8 % (39.6-49.0); Lymphocytes % 3.6 % (15.3-44.8); MPV 7.4 fL (7.6-11.3); RBC Red Blood Cell Count 4.53 M/uL (4.33-5.43)
[2021-10-18 13:53] LABS: Protime INR 1.28
--- NOTE | 2021-10-18 14:04 | RAD REPORT ---
EXAM DESCRIPTION: RAD - Chest Single View - 10/18/2021 1:57 pm CLINICAL HISTORY: FEVER Chest pain. COMPARISON: Chest Single View dated 11/27/2020; Chest Single View dated 07/21/2020; Chest Single View d ated 11/19/2019; Chest Pa And Lat (2 Views) dated 10/20/2019; Thorax W/ Con dated 09/15/2021 FINDINGS: Portable technique limits examination quality. Emphysematous changes are present throughout the lungs. Increased opacity is present in the medial ri ght upper lobe likely scarring. No focal infiltrate is seen. The heart is normal in size. Lower thora cic hardware in place.
[2021-10-18 14:10] LABS: Albumin 3.2 g/dL (3.4-5.0); Bilirubin Total 0.6 mg/dL (0.2-1.0); Potassium 3.9 mmol/L (3.5-5.1); Protein, Total 7.3 g/dL (6.4-8.2)
[2021-10-18] MEDS ORDERED: METHYLPREDNISOLONE 125 MG INJ ONE (14:56)
[2021-10-18] MEDS ORDERED: ALBUTEROL 2.5 MG/3 ML NEB SOL ONE (14:56)
[2021-10-18] MEDS ORDERED: IPRATROPIUM BROM 0.5MG/2.5ML ONE (14:57)
--- NOTE | 2021-10-18 15:19 | ER ---
Nurse's Notes [facility] Name: Suraj Bowens Age: 61 yrs Sex: Male : 1960 Arrival Date: 10/18/2021 Time: 13:01 Bed 2 Private MD: Diagnosis: COPD/ Chronic obstructive pulmonary disease with (acute) exacerbation;Viral infection, unspecified Presentation: 10/18 13:14 Chief complaint: Patient states: fever, SOB, cough started 3 days ago. Coronavirus iw screen: Client presents with at least one sign or symptom that may indicate coronavirus-19. Ebola Screen: Patient negative for fever greater than or equal to 101.5 degrees Fahrenheit, and additional compatible Ebola Virus Disease symptoms Patient denies exposure to infectious person. Patient denies travel to an Ebola-affected area in the 21 days before illness onset. No symptoms or risks identified at this time. Initial Sepsis Screen: Does the patient meet any 2 criteria? No. Patient's initial sepsis screen is negative. Does the patient have a suspected source of infection? No. Patient's initial sepsis screen is negative. Risk Assessment: Do you want to hurt yourself or someone else? Patient reports no desire to harm self or others. Onset of symptoms was October 15, 2021. 13:14 Method Of Arrival: Ambulatory iw 13:14 Acuity: SERGIO 3 iw Triage Assessment: 13:30 General: Appears in no apparent distress. uncomfortable, Behavior is calm, cooperative, jl7 appropriate for age. Pain: Denies pain. Neuro: Level of Consciousness is awake, alert, obeys commands, Oriented to person, place, time, situation. Cardiovascular: Patient's skin is warm and dry. Respiratory: Reports cough that is productive, Onset: The symptoms/episode began/occurred gradually, the patient has moderate shortness of breath. Derm: Skin is pink, warm \\T\\ dry. 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 - Social history:: Smoking status: unknown. Screenin:00 Abuse screen: Denies threats or abuse. Denies injuries from another. Nutritional jl7 screening: No deficits noted. Tuberculosis screening: No symptoms or risk factors identified. Fall Risk IV access (20 points). Total [place] Fall Scale indicates No Risk (0-24 pts). 15:26 Abuse screen: Denies threats or abuse. Nutritional screening: No deficits noted. ll1 Tuberculosis screening: No symptoms or risk factors identified. Fall Risk IV access (20 points). Total [place] Fall Scale indicates No Risk (0-24 pts). Assessment: 13:30 General: See triage assessment. jl7 14:30 Reassessment: No changes from previously documented assessment. Patient and/or family ll1 updated on plan of care and expected duration. Pain level reassessed. Patient is alert, oriented x 3, equal unlabored respirations, skin warm/dry/pink. 15:15 Reassessment: Patient appears in no apparent distress at this time. No changes from jl7 previously documented assessment. Patient and/or family updated on plan of care and expected duration. Pain level reassessed. Patient is alert, oriented x 3, equal unlabored respirations, skin warm/dry/pink. Cardiovascular: Rhythm is regular. Respiratory: Airway is patent Respiratory effort is even, unlabored, Breath sounds are clear. Derm: Skin is pink, warm \\T\\ dry. Vital Signs: 13:14 BP 121 / 67; Pulse 71; Resp 18 S; Temp 98.4(O); Pulse Ox 94% on R/A; iw 14:15 BP 92 / 62; Pulse 63; Resp 16; Pulse Ox 94% ; jl7 15:20 BP 105 / 73; Pulse 68; Resp 15; Pulse Ox 92% ; jl7 ED Course: 13:01 Patient arrived in ED. rg4 13:07 Matt Chun PA is PHCP. jr8 13:07 Mxa Rojas MD is Attending Physician. jr8 13:15 Triage completed. iw 13:20 Allison Bran RN is Primary Nurse. jl7 13:59 Chest Single View XRAY In Process Unspecified. EDMS 14:00 Initial lab(s) drawn, by ky, sent to lab. First set of blood cultures drawn by me, jl7 Second set of blood cultures drawn by me, COVID swab sent to lab. Flu and/or RSV swab sent to lab. Inserted saline lock: 20 gauge in right forearm, using aseptic technique. Blood collected. 14:00 Arm band placed on right wrist. jl7 14:00 Patient has correct armband on for positive identification. Placed in gown. Bed in low jl7 position. Call light in reach. Side rails up X 1. Client placed on continuous cardiac and pulse oximetry monitoring. NIBP monitoring applied. 15:03 IV discontinued, intact, bleeding controlled, No redness/swelling at site. Pressure ll1 dressing applied, pain at site when flushing. 15:05 Inserted saline lock: 22 gauge in left antecubital area, using aseptic technique. ll1 15:25 No provider procedures requiring assistance completed. IV discontinued, intact, ll1 bleeding controlled, No redness/swelling at site. Pressure dressing applied. Administered Medications: 15:07 Drug: SOLU-Medrol (methylPrednisoLONE) 125 mg Route: IVP; Site: left antecubital; ll1 15:18 Follow up: Response: No adverse reaction ll1 15:07 Drug: Albuterol - atroVENT (ipratropium) (3:1) (2.5 mg - 0.5 mg) 3 ml Route: Nebulizer; ll1 15:18 Follow up: Response: No adverse reaction ll1 Medication: 15:15 VIS not applicable for this client. jl7 Outcome: 15:19 Discharge ordered by . aurelio 15:27 Discharged to home ambulatory. ll1 15:27 Condition: stable 15:27 Discharge instructions given to patient, Instructed on discharge instructions, follow up and referral plans. medication usage, Demonstrated understanding of instructions, follow-up care, medications, Prescriptions given X 1. 15:28 Patient left the ED. jl7 Signatures: Dispatcher [employer] EDMS Bonita Wasbhurn, RN Matt Underwood PA PA jr8 Garcia, Rubi rg4 Allison Bran RN RN jl7 Carmela Croft RN RN ll1
--- NOTE | 2021-10-18 15:19 | EDPHYS ---
Physician Documentation [facility] Name: Suraj Bowens Age: 61 yrs Sex: Male : 1960 Arrival Date: 10/18/2021 Time: 13:01 Bed 2 Private MD: ED Physician Max Rojas HPI: 10/18 13:54 This 61 yrs old Male presents to ER via Ambulatory with complaints of Fever, Cough, jr8 Shortness Of Breath. 13:54 The patient reports fever, not measured (subjective). Onset: The symptoms/episode jr8 began/occurred gradually, 3 day(s) ago. Modifying factors: there are no obvious modifying factors. Associated signs and symptoms: Pertinent positives: cough, headache, shortness of breath, sore throat. Severity of symptoms: At their worst the symptoms were moderate in the emergency department the symptoms are unchanged. The patient has not experienced similar symptoms in the past. The patient has not recently seen a physician. 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 - Social history:: Smoking status: unknown. ROS: 13:54 Eyes: Negative for injury, pain, redness, and discharge, Neck: Negative for injury, jr8 pain, and swelling, Cardiovascular: Negative for chest pain, palpitations, and edema, Abdomen/GI: Negative for abdominal pain, nausea, vomiting, diarrhea, and constipation, Back: Negative for injury and pain, MS/Extremity: Negative for injury and deformity, Skin: Negative for injury, rash, and discoloration. 13:54 Constitutional: Positive for fever. 13:54 ENT: Positive for sore throat. 13:54 Respiratory: Positive for cough, shortness of breath. 13:54 Neuro: Positive for headache. Exam: 14:10 Constitutional: This is a well developed, well nourished patient who is awake, alert, jr8 and in no acute distress. Eyes: Pupils equal round and reactive to light, extra-ocular motions intact. Lids and lashes normal. Conjunctiva and sclera are non-icteric and not injected. Cornea within normal limits. Periorbital areas with no swelling, redness, or edema. ENT: Nares patent. No nasal discharge, no septal abnormalities noted. Tympanic membranes are normal and external auditory canals are clear. Oropharynx with no redness, swelling, or masses, exudates, or evidence of obstruction, uvula midline. Mucous membranes moist. Neck: Trachea midline, no thyromegaly or masses palpated, and no cervical lymphadenopathy. Supple, full range of motion without nuchal rigidity, or vertebral point tenderness. No Meningismus. Cardiovascular: Regular rate and rhythm with a normal S1 and S2. No gallops, murmurs, or rubs. Normal PMI, no JVD. No pulse deficits. Abdomen/GI: Soft, non-tender, with normal bowel sounds. No distension or tympany. No guarding or rebound. No evidence of tenderness throughout. Back: No spinal tenderness. No costovertebral tenderness. Full range of motion. Skin: Warm, dry with normal turgor. Normal color with no rashes, no lesions, and no evidence of cellulitis. MS/ Extremity: Pulses equal, no cyanosis. Neurovascular intact. Full, normal range of motion. Neuro: Awake and alert, GCS 15, oriented to person, place, time, and situation. Cranial nerves II-XII grossly intact. Motor strength 5/5 in all extremities. Sensory grossly intact. 14:10 Respiratory: the patient does not display signs of respiratory distress, Respirations: normal, Breath sounds: rhonchi, that are mild, are heard diffusely, wheezing: expiratory that is mild, is heard diffusely. Vital Signs: 13:14 BP 121 / 67; Pulse 71; Resp 18 S; Temp 98.4(O); Pulse Ox 94% on R/A; iw 14:15 BP 92 / 62; Pulse 63; Resp 16; Pulse Ox 94% ; jl7 15:20 BP 105 / 73; Pulse 68; Resp 15; Pulse Ox 92% ; jl7 MDM: 13:22 Patient medically screened. jr8 15:18 Data reviewed: vital signs, nurses notes, lab test result(s), EKG, radiologic studies, jr8 plain films. Data interpreted: Pulse oximetry: on room air is 94 %. Interpretation: acceptable. Counseling: I had a detailed discussion with the patient and/or guardian regarding: the historical points, exam findings, and any diagnostic results supporting the discharge/admit diagnosis, lab results, radiology results, the need for outpatient follow up, a family practitioner, to return to the emergency department if symptoms worsen or persist or if there are any questions or concerns that arise at home. Response to treatment: the patient's symptoms have markedly improved after treatment. ED course: Patient overall doing much better. Patient is already on prednisone and has breathing treatments at home. Told him to continue this and will add antibiotics secondary to his emphysematous condition with acute viral episode. No other bacterial findings at this time and was negative flu and COVID which I explained to patient. If he gets worsening point time to come back for further evaluation. Patient and family good with the plan at this time.. 10/18 13:10 Order name: SARS-COV-2 RT PCR (Document "Date of Onset" if Symptomatic); Complete Time: [facility] 15:12 10/18 13:10 Order name: Blood Culture Adult (2) [facility] 10/18 13:10 Order name: CBC with Diff; Complete Time: 14:10 [facility] 10/18 13:10 Order name: CMP; Complete Time: 14:10/18 13:10 Order name: Lactate; Complete Time: 14: 10/18 13:10 Order name: Protime (+inr); Complete Time: 14: 10/18 13:10 Order name: Ptt, Activated; Complete Time: 14:10 10/18 13:10 Order name: Chest Single View XRAY; Complete Time: 14:10 10/18 13:10 Order name: Accucheck; Complete Time: 15:18 10/18 13:10 Order name: Cardiac monitoring; Complete Time: 15: 10/18 13:10 Order name: Flu; Complete Time: 14:43 10/18 14:01 Order name: Glucose, Ancillary Testing; Complete Time: 14:10 EDMS 10/18 13:10 Order name: EKG - Nurse/Tech; Complete Time: 15: 10/18 13:10 Order name: IV Saline Lock - Large Bore; Complete Time: 13: 10/18 13:10 Order name: Labs collected and sent; Complete Time: 13: 10/18 13:10 Order name: O2 Per Protocol; Complete Time: : jr10/18 13:10 Order name: O2 Sat Monitoring; Complete Time: jr8 Administered Medications: 15:07 Drug: SOLU-Medrol (methylPrednisoLONE) 125 mg Route: IVP; Site: left antecubital; 1 15:18 Follow up: Response: No adverse reaction ll1 15:07 Drug: Albuterol - atroVENT (ipratropium) (3:1) (2.5 mg - 0.5 mg) 3 ml Route: Nebulizer; ll1 15:18 Follow up: Response: No adverse reaction 1 Disposition: 16:10 Co-signature as Attending Physician, Max Rojas MD. rn Disposition Summary: 10/18/21 15:19 Discharge Ordered Location: Home jr8 Problem: new jr8 Symptoms: have improved jr8 Condition: Stable jr8 Diagnosis - COPD/ Chronic obstructive pulmonary disease with (acute) exacerbation jr8 - Viral infection, unspecified jr8 Followup: jr8 - With: Private Physician - When: 1 week - Reason: Recheck today's complaints, Continuance of care, Re-evaluation by your physician Discharge Instructions: - Discharge Summary Sheet jr8 - Viral Respiratory Infection jr8 - Chronic Obstructive Pulmonary Disease Exacerbation jr8 Forms: - Medication Reconciliation Form jr8 - Thank You Letter jr8 - Antibiotic Education jr8 - Prescription Opioid Use jr8 Prescriptions: - levofloxacin 500 mg Oral Tablet - take 1 tablet by ORAL route once daily for 7 days; 7 tablet; Refills: 0, jr8 Product Selection Permitted Signatures: Dispatcher [employer] EDMax Celestin MD MD rn Roszak, Josh, PA PA jr8 Allison Bran RN RN jl7 Carmela Croft RN RN ll1
[2021-10-18 15:45] VITALS: TEMP 98.4
[2021-10-18 15:48] VITALS: BP 105/73; O2SAT 92
--- NOTE | 2021-10-19 07:54 | EKG ---
Test Date: 2021-10-18 Test Time: 13:26:02 [employer]her: JT MEASUREMENT RESULTS: Intervals: Rate: 65 MI: 142 QRSD: 80 QT: 376 QTc: 391 [place]: P: 60 MI: 142 QRS: 58 T: 57 INTERPRETIVE STATEMENTS: Normal sinus rhythm Septal infarct, age undetermined Abnormal ECG Compared to ECG 11/27/2020 09:38:15 Myocardial infarct finding now present Electronically Signed On 10-19-21 07:52:16 CDT by Satish Tucker
== END 2021-10-18 15:28 | disposition home or self-care (01) ==
LOC: ER 13:00
DX: J44.1 Chronic obstructive pulmonary disease with (acute) exacerbation (principal); B34.9 Viral infection, unspecified; Z20.822 Contact with and (suspected) exposure to COVID-19; Z85.118 Personal history of other malignant neoplasm of bronchus and lung; Z88.1 Allergy status to other antibiotic agents
CPT/HCPCS: 93005; 87040 ×2; 85025; 36415; 85610; 82947; 83605; 85730; 80053; 87804 ×2; 71045; 94640; 96374; 99284; U0003; J2930